=== PATIENT | female | born 1990 | race African-American/Black ===

== ENCOUNTER 2017-02-22 17:53 | Emergency (ER) | payer OTHER ==
[~2017-02-22] VITALS: Ht 167.6 cm; Wt 70.5 kg
[2017-02-22 17:57] VITALS: BP 149/89; TEMP 98.9
[2017-02-22] MEDS ORDERED: MELATONIN5 M1 SL (18:00)
[2017-02-22] MEDS ORDERED: FLEXERIL 1010 MG/TAB PO (19:31)
[2017-02-22 19:45] VITALS: PULSE 97
== END 2017-02-22 19:46 | disposition home or self-care (01) ==
LOC: COL.ER 17:53
DX: S16.1XXA Strain of muscle, fascia and tendon at neck level, initial encounter (principal); V43.62XA Car passenger injured in collision with other type car in traffic accident, initial encounter; Y92.410 Unspecified street and highway as the place of occurrence of the external cause

== ENCOUNTER → 2017-02-23 | Outpatient (CLI) | payer OTHER ==
[~2017-02-23] MED LIST: FLEXERIL 1010 MG/TAB PO; MELATONIN5 M1 SL
== END ==
LOC: COL.RAD 18:39
DX: S19.9XXA Unspecified injury of neck, initial encounter (principal); M54.2 Cervicalgia